=== PATIENT | male | born 1955 | race Caucasian/White ===

== ENCOUNTER → 2017-04-11 | Outpatient (CLI) | payer MEDICARE ==
[2017-04-11 08:07] LABS: Basophils % (A) 1 %; CH 31.7; CHCM 33.5; Eosinophils # (A) 0.3 k/uL (0-0.7); Eosinophils % (A) 3 %; HCT 45.8 % (39.0-53.0); Luc # (Auto) 0.32; Luc % (Auto) 4; Lymphocytes # (A) 1.9 k/uL (1.0-4.8); Lymphocytes % (A) 25 %; MCH 31.3 pg (25.0-35.0); MCHC 32.8 g/dL (31.0-37.0); MCV 95.1 fL (80.0-100.0); Mean Platelet Volume 6.8; Monocytes # (A) 0.6 k/uL (0-1.0); Monocytes % (A) 7 %; Neutrophils # (A) 4.7 k/uL (1.3-7.7); Neutrophils % (A) 60 %; RBC 4.81 m/uL (4.30-5.90); WBC 7.8 k/uL (3.8-10.6); WBC (Perox) 7.48
[2017-04-11 08:33] LABS: ALT 29 U/L (21-72); AST 23 U/L (17-59); Alkaline Phosphatase 89 U/L (38-126); Anion Gap 9 mmol/L; Blood Urea Nitrogen 17 mg/dL (9-20); Calcium 9.9 mg/dL (8.4-10.2); Carbon Dioxide 25 mmol/L (22-30); Chloride 108 mmol/L (98-107); Cholesterol 149 mg/dL (<200); Glucose 125 mg/dL (74-99); HDL Cholesterol 36 mg/dL (40-60); Non-African American GFR(MDRD) >60 (>60 ml/min/1.73 sqM); Potassium 4.9 mmol/L (3.5-5.1); Sodium 142 mmol/L (137-145); Total Bilirubin 0.6 mg/dL (0.2-1.3); Triglycerides 169 mg/dL (<150)
== END | disposition home or self-care (01) ==
LOC: LABWHC1 07:22
PROVIDERS: ATTEND Family Medicine
DX: D72.829 Elevated white blood cell count, unspecified (principal)
CPT/HCPCS: 36415; 80053; 80061; 84443; 85025

== ENCOUNTER → 2017-04-11 | Outpatient (CLI) | payer MEDICARE ==
--- NOTE | 2017-04-12 16:01 | MR ---
EXAMINATION TYPE: MR lumbar spine wo con DATE OF EXAM: 04/11/2017 7:13 AM COMPARISON: NONE HISTORY: 61-year-old male with low back pain, radiculopathy lsp TECHNIQUE: Multiplanar, multisequence images of the lumbar spine were acquired. FINDINGS: Variable desiccation of intervertebral discs throughout the lumbar spine. There is moderate disc heig ht loss from L3 through S1 levels with diffuse bulging discs. Disc vacuum at both L4-L5 and L5-S1. Advanced hypertrophic facet arthropathy in the lower lumbar spine. There is grade 1 anterolisthesis at L5-S1 suspected to be on the basis of bilateral L5 pars defects. Vertebral body heights are preserved. No suspicious bone marrow replacement. Conus medullaris is normal. At T11-T12, mild disc bulge impressing on the ventral thecal sac but not causing significant spinal c anal or foraminal stenosis. From T12 through L2 levels, no spinal canal or neuroforaminal stenosis. At L2-L3, there is minimal disc bulge without significant spinal canal or foraminal stenosis. At L3-L4, there is a large broad-based posterior disc protrusion. Disc material appears to abut both traversing L4 nerve roots. There is mild narrowing of the spinal canal with mild bilateral neuroforam inal stenosis. At L4-L5, there is bulging disc but with a right paracentral large disc extrusion with extruded disc measuring approximately 1.1 cm wide and 1.3 cm AP. This is mass effect onto the traversing right L5 n erve root. Along with facet arthropathy, there is moderate right neuroforaminal stenosis. At L5-S1, there is grade 1 anterolisthesis. Bulging disc and possible moderate to severe bilateral ne uroforaminal stenoses here. Hypertrophic facet arthropathy is present. No spinal canal stenosis. No prevertebral or paravertebral soft tissues abnormality. There is ectasia of the upper abdominal aorta measured at 2.7 cm. IMPRESSION: 1. Moderate to advanced degenerative disc disease lower lumbar spine. A large 1.3 cm right paracentra l extruded disc at L4-L5 impinges the traversing right L5 nerve root. Along with facet arthropathy, t here is moderate right neuroforaminal stenosis at this level. 2. Prominent posterior disc bulge at L2-L4 abuts both traversing L4 nerve roots and contributes to mi ld neural foraminal narrowing on both sides. 3. Grade 1 anterolisthesis at L5-S1 suspected to be on the basis of bilateral L5 pars defects. Unable to exclude moderate to severe neuroforaminal stenoses at this level.
== END | disposition home or self-care (01) ==
LOC: RADMRIMAIN 06:37
PROVIDERS: ATTEND Physical Medicine & Rehabilitation
DX: M99.73 Connective tissue and disc stenosis of intervertebral foramina of lumbar region (principal); M51.16 Intervertebral disc disorders with radiculopathy, lumbar region; M43.17 Spondylolisthesis, lumbosacral region; M46.96 Unspecified inflammatory spondylopathy, lumbar region; M47.22 Other spondylosis with radiculopathy, cervical region
CPT/HCPCS: 36415; 72148; 80053; 80061; 84443; 85025

== ENCOUNTER → 2018-04-28 | Outpatient (CLI) | payer MEDICARE ==
--- NOTE | 2018-04-28 15:16 | MR ---
EXAMINATION TYPE: MR lumbar spine wo con DATE OF EXAM: 04/28/2018 9:24 AM COMPARISON: 04/11/2017 HISTORY: Pain Multiplanar, MultiSpin echo imaging of the lumbar spine was performed. L1-L2: Mild disc desiccation mild posterior disc bulge. No herniation protrusion or central stenosis. Foramina are patent bilaterally. L2-L3: Mild disc desiccation mild posterior disc bulge. No herniation protrusion or central stenosis. Foramina are patent bilaterally. L3-L4: Moderate disc desiccation. Left paracentral disc herniation unchanged from prior study. Mild e ffacement ventral thecal sac. Mild left lateral recess stenosis. Bilateral foraminal encroachment lef t greater than right. L4-L5: Severe disc desiccation. New Disc herniation with the sequestered component identified posteri or to the L4 vertebral segment measuring 1.4 cm in craniocaudal dimension. Additional stable componen t identified paracentrally and to the right measuring 1 cm in greatest dimension. There is resultant left lateral recess stenosis and left foraminal encroachment. L5-S1: Severe disc desiccation. Grade 1 anterolisthesis of L5 on S1 measuring 6.8 mm. Posterior disc bulge with effacement of the ventral thecal sac. No evidence for lateral recess stenosis or central s tenosis. Foramina are narrowed bilaterally. Severe facet joint arthropathy. Bilateral spondylolysis. Lumbar segments are intact. No paraspinal masses are identified. Conus medullaris has a normal appe arance. IMPRESSION: 1. Multilevel degenerative disc disease. 2. New Disc herniation with the sequestered component identified posterior to the L4 vertebral segmen t measuring 1.4 cm in craniocaudal dimension. Additional stable component identified paracentrally an d to the right measuring 1 cm in greatest dimension
== END | disposition home or self-care (01) ==
LOC: RADMRIMAIN 08:41
PROVIDERS: ATTEND Physical Medicine & Rehabilitation
DX: M51.26 Other intervertebral disc displacement, lumbar region (principal); M51.36 Other intervertebral disc degeneration, lumbar region
CPT/HCPCS: 72148

== ENCOUNTER → 2018-06-25 | Outpatient (CLI) | payer MEDICARE ==
--- NOTE | 2018-06-25 15:03 | US ---
EXAMINATION TYPE: US venous doppler duplex LE RT DATE OF EXAM: 06/25/2018 2:50 PM COMPARISON: NONE CLINICAL HISTORY: I80.9 Phlebitis and thrombophlebitis. SIDE PERFORMED: Right TECHNIQUE: The lower extremity deep venous system is examined utilizing real time linear array sonog caio with graded compression, doppler sonography and color-flow sonography. VESSELS IMAGED: External Iliac Vein (EIV) Common Femoral Vein Deep Femoral Vein Greater Saphenous Vein * Femoral Vein Popliteal Vein Small Saphenous Vein * Proximal Calf Veins (* superficial vessels) Right Leg: Negative for DVT Unable to visualized posterior tibs (ordered) due to edema. Grayscale, color doppler, spectral doppler imaging performed of the deep veins of the right lower ext remity. There is normal flow, compressibility, vascular waveforms. Greater saphenous vein show sati sfactory compressibility. Results phoned to Dr. Avina immediately following exam. IMPRESSION: Suboptimal evaluation below knee. No evidence of acute DVT in right lower extremity on i mages saved.
== END | disposition home or self-care (01) ==
LOC: RADUSMAIN 14:25
PROVIDERS: ATTEND Physical Medicine & Rehabilitation
DX: M79.661 Pain in right lower leg (principal); M47.27 Other spondylosis with radiculopathy, lumbosacral region; M43.16 Spondylolisthesis, lumbar region; M51.17 Intervertebral disc disorders with radiculopathy, lumbosacral region; M48.062 Spinal stenosis, lumbar region with neurogenic claudication; M47.22 Other spondylosis with radiculopathy, cervical region; I80.9 Phlebitis and thrombophlebitis of unspecified site; K57.92 Diverticulitis of intestine, part unspecified, without perforation or abscess without bleeding; N28.9 Disorder of kidney and ureter, unspecified; Z95.828 Presence of other vascular implants and grafts

== ENCOUNTER → 2018-07-04 | Outpatient (CLI) | payer MEDICARE ==
--- NOTE | 2018-07-04 13:55 | MR ---
EXAMINATION TYPE: MR knee RT wo con DATE OF EXAM: 07/04/2018 COMPARISON: None HISTORY: Pain in right knee / Effusion, right knee TECHNIQUE: Multiplanar, multisequence imaging of the right knee is performed without IV contrast. FINDINGS: MEDIAL MENISCUS: There is diffuse increased signal within the posterior horn medial meniscus. No comm unication with the articular surface is evident. LATERAL MENISCUS: There is some increased signal within the anterior horn lateral meniscus compatible some internal derangement. No communication with an articular surface is evident. CRUCIATE LIGAMENTS: Anterior and posterior cruciate ligaments are intact. COLLATERAL LIGAMENTS: There is some mild increased signal adjacent to the medial collateral ligament. Mild strain could be considered. Lateral collateral ligament appears intact. EXTENSOR MECHANISM: Visualized quadriceps and patellar tendons are intact. EFFUSION: Small joint effusion is present. POPLITEAL CYST: No popliteal/goldman cyst. TRICOMPARTMENT SPACES: Preserved. CARTILAGE: Some mild narrowing of the tibial plateau articular cartilage may be present medially and laterally. BONE MARROW SIGNAL: No focal abnormal marrow signal is appreciated. OTHER: No additional significant abnormality is appreciated. IMPRESSION: 1. Internal derangement posterior horn medial meniscus and anterior horn lateral meniscus. No communi cation with the articular surfaces is evident. 2. Small joint effusion. 3. Mild strain medial collateral ligament
== END | disposition home or self-care (01) ==
LOC: RADMRIMAIN 07:35
PROVIDERS: ATTEND Orthopaedic Surgery Sports Medicine
DX: M23.321 Other meniscus derangements, posterior horn of medial meniscus, right knee (principal); M23.341 Other meniscus derangements, anterior horn of lateral meniscus, right knee

== ENCOUNTER 2018-08-15 08:01 | Day surgery (SDC) | payer MEDICARE ==
[2018-08-07 13:25] VITALS: BMI 26.1
[~2018-08-15 08:01] MED LIST: BACITRACIN 50,000 UNIT, POLYMYXIN B 500,000 UNIT in SODIUM CHLORIDE 0.9% IRRIGATIO 1,00... IRRIGATION ONE; DEXAMETHASONE SOD PHOSPHATE 10 MG/ML 1 ML VIAL IV ONE; LACTATED RINGERS 1,000 ML IV SCH; LIDOCAINE 1% 20 ML VIAL (10MG/ML) FOR IV START INTRADERMA PRN; MIDAZOLAM 2 MG/2 ML VIAL IV PRN; ONDANSETRON 4 MG/2 ML VIAL IVP ONE; SCOPOLAMINE 1.5MG/72HR PATCH TRANSDERM ONE; ceFAZolin IN SWFI 2 GM/20 ML SYRINGE IVP ONE; cefTRIAXone 1,000 MG VIAL (IM USE) IM ONE
[2018-08-15 09:38] LABS: Glucose,Whole Blood 143 mg/dL (75-99)
[2018-08-15] MEDS ORDERED: THROMBIN (BOVINE) 5,000 UNIT VIAL TOPICAL ONE (10:14)
[2018-08-15] MEDS ORDERED: GELATIN SPONGE,ABSORB (LARGE) 1 EACH SPONGE TOPICAL ONE (10:14)
[2018-08-15] MEDS ORDERED: PROPOFOL 10 MG/ML 20 ML VIAL IV ONE (10:14)
[2018-08-15] MEDS ORDERED: MIDAZOLAM 2 MG/2 ML VIAL ONE (10:14)
[2018-08-15] MEDS ORDERED: SUCCINYLCHOLINE CHLORIDE VIAL 200 MG/10 ML VIAL IV ONE (10:14)
[2018-08-15] MEDS ORDERED: LIDOCAINE 0.5%-EPI 1:200,000 50 ML VIAL SQ ONE ×2 (10:14)
[2018-08-15] MEDS ORDERED: fentaNYL (PF) 50 MCG/ML 2 ML AMP ONE (10:14)
[2018-08-15] MEDS ORDERED: LIDOCAINE 1% INJ 10MG/ML (20 ML MDV) ONE (10:14)
[2018-08-15] MEDS ORDERED: methylPREDNISolone ACETATE 40 MG/ML 1 ML VIAL MISCELLANE ONE (10:14)
[2018-08-15] MEDS ORDERED: HYDROcodone/APAP 5-325MG 1 EACH TAB PO PRN ×3 (11:51→11:55)
[2018-08-15] MEDS ORDERED: BENZOCAINE/MENTHOL LOZENG 1 EACH LOZENGE MUCOUS MEM PRN (11:51)
[2018-08-15] MEDS ORDERED: HYDROmorphone 1 MG/ML 1 ML SYRINGE IVP PRN (11:51)
[2018-08-15] MEDS ORDERED: ONDANSETRON 4 MG/2 ML VIAL IVP PRN (11:51)
[2018-08-15] MEDS ORDERED: IBUPROFEN 600 MG TAB PO PRN (11:51)
[2018-08-15] MEDS ORDERED: KETOROLAC 30 MG/ML 1 ML VIAL IVP PRN (11:51)
[2018-08-15] MEDS ORDERED: NITROGLYCERIN SL TABS 0.4 MG TAB SUBLINGUAL PRN (11:55)
[2018-08-15 12:00] VITALS: TEMP 97.2
[2018-08-15] MEDS ORDERED: SODIUM CHLORIDE 0.9% 1,000 ML IV SCH (12:00)
[2018-08-15] MEDS ORDERED: LACTATED RINGERS 1,000 ML IV ONE (12:00)
--- NOTE | 2018-08-15 12:01 | P.OP ---
Date of Procedure: 08/15/18 Preoperative Diagnosis: Herniated nucleus pulposis L4 5 bilateral lower extremity radiculopathy worse on the right and left Right lower extremity weakness Postoperative Diagnosis: Same Anesthesia: GETA Pathology: none sent Condition: stable Disposition: PACU Description of Procedure: BRIEF OPERATIVE NOTE Preoperative Diagnosis: Herniated nucleus pulposis L4 5, bilateral lower extremity radiculopathy right greater than left, right lower extremity weakness Postoperative Diagnosis: Same with degenerative disc disease Procedure: Laminectomy and decompression L4 5 Discectomy for decompression L4 5 Use of fluoroscopic guidance Surgeon: Dr. Du Manufacturing Project Engineer: Rai Mendoza is present throughout the entire the case persistence during positioning, dissection, exposure, visualization, and all crucial elements of the case as well as closure. Anesthesia: General anesthesia Estimated blood loss: Approximately 50 mL none Complications: None apparent Components implanted: None Disposition: To recovery room in good stable condition. OPERATIVE INDICATIONS The patient has been having issues in their lower back and lower extremities. he has had long-standing issues of the past year with his back and his lower extremities. He was found have a large disc herniation at L4 5 which correlate with his lower extremity radiculopathy bilaterally articular to the right. He had significant disc degeneration L4 5 and L5-S1 as well. He been through extensive conservative measures and conservative treatment without any lasting benefit. The patient has been through conservative treatment. We discussed the possibility of decompression alone versus possibly surgical intervention with decompression and fusion. The patient did have issues with his urine but did not have any obvious signs of infection. I discussed the urine issues with his primary care physician and we felt that it was okay for him to proceed with prophylactic antibiotics and close follow-up was operatively with urology. We discussed various treatment options including surgery, and the patient wishes to proceed with surgery We discussed the risk, patient's alternatives and benefits of surgery including but not limited to, risk of bleeding risk of infection, risk of need for further surgery, risk of decreased, loss of motion, loss of function, nerve damage, paralysis, heart attack, blindness and . OPERATIVE SUMMARY After discussing all the risks, patient alternatives and benefits at length, the patient elected to proceed with surgical intervention, signed informed consent, and presented for their procedure. The patient was seen and examined in the preoperative holding area and the surgical site was marked. The patient was given antibiotics and brought to the operating room. The patient was sedated and intubated by anesthesia in standard fashion. The patient was positioned on to the operating room table in a prone position on the appropriate frame which was well-padded and well molded. We were careful to pad any bony prominences and pressure points. We were careful to maintain the patient's cervical spine and good neutral alignment and position throughout. The patient was prepped and draped in a normal standard fashion. An appropriate timeout and keystone protocol performed. We were able to proceed with the surgery. Fluoroscopy was utilized to establish the appropriate level at L4 5. The local wound area was infiltrated with local anesthetic. An incision was made at the midline longitudinally over the appropriate levels at L4 5. Dissection was taken down subcutaneously to the level of the fascia which was split midline. Dissection was taken over the lamina. Intraoperative fluoroscopy was taken which showed a marker at the appropriate level At L4 5. With the appropriate level positively confirmed, we were able to proceed with laminectomy. The wound was copiously irrigated and suctioned dry as had been done periodically throughout the case. I performed a laminectomy with a combination of curettes and a high-speed bur and Kerrison rongeurs. A small medial facetectomy was performed again further access. A partial foraminotomy was also performed. Portions of the ligamentum flavum were taken down to expose the dura and traversing nerve root. I was able to mobilize the traversing nerve root and gain access to the disc space. Note was made of obvious compression from the disc. There was significant adhesion of the disc to the nerve root and a great deal scar tissue around the nerve root as well. I had to tease away the scar tissue to establish the lateral aspect of the nerve for more fully mobilize the disc itself. The disc was quite matted down and scarred in but is able to start removing the disc in large segments and piecemeal. Protecting the soft tissue structures, a small annulotomy was established. I was able to perform discectomy and remove any extruded disc fragments and any loose fragments from within the disc itself. There is some significant disc desiccation noted. I tried to preserve the disc annulus that appeared stable. There were no further extruded fragments noted. There is no evidence of dural tear or leak. Good hemostasis maintained. The wound was copiously irrigated and suctioned dry. Good decompression and discectomy was noted. We were able to proceed with closure. The fascia was closed for a watertight closure. The subcuticular tissue was closed with absorbable suture. The wound was cleaned and dried and dressed with the appropriate dressing. The drapes were broken down. The patient was gently rolled back onto their hospital bed being careful to maintain their cervical spine and good neutral alignment and position. They were woken up by anesthesia, extubated, and brought to the recovery room in good stable condition. The patient will be admitted to the hospital for observation and for appropriate postoperative care, medical management and monitoring. We will continue to follow them closely about the postoperative course.
--- NOTE | 2018-08-15 12:05 | XR ---
Fluoroscopy INDICATION: Pain FINDINGS: Fluoroscopy time: 2 seconds. Images obtained: 1. IMPRESSIONS: 1. Documentation of fluoroscopy.
[2018-08-15] MEDS: HYDROmorphone 0.5 MG/0.5 ML SYRINGE IVP PRN ×2 (12:08→12:20)
[2018-08-15] MEDS ORDERED: MEPERIDINE 50 MG/ML SYRINGE IVP ONE (12:53)
[2018-08-15 13:47] VITALS: RESP 18
[2018-08-15 14:22] VITALS: BP 124/77; PULSE 56
[2018-08-15] MEDS ORDERED: ceFAZolin IN SWFI 2 GM/20 ML SYRINGE IVP SCH (16:00)
--- NOTE | 2018-08-15 16:27 | FL ---
EXAMINATION TYPE: FL guidance operating room, XR lumbar spine 2 or 3V DATE OF EXAM: 08/15/2018 CLINICAL HISTORY: Low back pain. TECHNIQUE: Fluoroscopy. Intraoperative limited views lumbar spine. COMPARISON: None. FINDINGS: Fluoroscopic guidance was provided during lumbar fusion procedure performed by Dr. Du. A total of 1 minute 55 seconds of fluoroscopic time was utilized during the procedure and 6 spot tulio ges are acquired. Images acquired show placement of posterior interpedicular rods and screws and metallic disc material L3-L5 levels with satisfactory alignment seen on intraoperative images saved. IMPRESSION: As Above.
[2018-08-15] MEDS ORDERED: ATORVASTATIN 40 MG TAB PO SCH (21:00)
[2018-08-15] MEDS ORDERED: ATENOLOL 50 MG TAB PO SCH (21:00)
[2018-08-16] MEDS ORDERED: ASPIRIN 81 MG PO SCH (09:00)
== END 2018-08-15 14:38 | disposition home or self-care (01) ==
LOC: OR 08:01
PROVIDERS: ATTEND Orthopaedic Surgery Orthopaedic Surgery of the Spine
DX: M51.16 Intervertebral disc disorders with radiculopathy, lumbar region (principal); I25.10 Atherosclerotic heart disease of native coronary artery without angina pectoris; I13.10 Hypertensive heart and chronic kidney disease without heart failure, with stage 1 through stage 4 chronic kidney disease, or unspecified chronic kidney disease; N18.9 Chronic kidney disease, unspecified; F17.210 Nicotine dependence, cigarettes, uncomplicated; Z95.5 Presence of coronary angioplasty implant and graft; E78.5 Hyperlipidemia, unspecified; E78.00 Pure hypercholesterolemia, unspecified; Z79.82 Long term (current) use of aspirin; Z79.899 Other long term (current) drug therapy
CPT/HCPCS: 84132; 72100; 72020; 63030; J1030; J2175; J2405; J0696; J1170; 86850; 86900; 86901

== ENCOUNTER 2022-06-03 12:33 | Emergency (ER) | payer MEDICARE ==
[2022-06-03 12:40] VITALS: BP 122/75; PULSE 52; RESP 16; TEMP 98.4
--- NOTE | 2022-06-03 13:07 | ED ---
General Adult HPI - General Chief complaint: Abdominal Pain Stated complaint: Constipation Time Seen by Provider: 06/03/22 12:40 Source: patient, RN notes reviewed, old records reviewed Mode of arrival: ambulatory Limitations: no limitations - History of Present Illness Initial comments: This is a 66-year-old male who presents emergency Department stating he has been unable to have a good bowel movement for the last 9 days. Patient states his decreased his by mouth intake and eating because he is unable to have a bowel movement. Patient states she's tried a laxative and has not helped. Patient states he has diffuse lower abdominal tenderness bilaterally in states there is no one area that hurts more than the other. Patient states anytime he tries to have a bowel movement his lower abdomen starts to hurt. Patient denies any nausea vomiting. Patient denies any fever chills. Patient states he doesn't have a long-standing history of this. - Related Data Home Medications Medication Instructions Recorded Confirmed Aspirin [Children's Aspirin] 81 mg PO DAILY 08/07/18 08/15/18 Atorvastatin [Lipitor] 40 mg PO HS 08/07/18 08/15/18 HYDROcodone/APAP 5-325MG [[place] 1 tab PO Q6HR PRN 08/07/18 08/15/18 5-325] Nitrofurantoin Monohyd/M-Cryst 100 mg PO Q12HR 08/07/18 08/15/18 [Macrobid] Nitroglycerin Sl Tabs [Nitrostat] 0.4 mg SUBLINGUAL Q5M PRN 08/07/18 08/15/18 atenoloL [Tenormin] 50 mg PO HS 08/07/18 08/15/18 Previous Rx's Medication Instructions Recorded HYDROcodone/APAP 5-325MG [[place] 1 - 2 tab PO Q6HR PRN #24 tab 08/15/18 5-325] Allergies Allergy/AdvReac Type Severity Reaction Status Date / Time No Known Allergies Allergy Verified 06/03/22 12:35 Review of Systems ROS Statement: Those systems with pertinent positive or pertinent negative responses have been documented in the HPI. ROS Other: All systems not noted in ROS Statement are negative. Past Medical History Past Medical History: Coronary Artery Disease (CAD), Hyperlipidemia, Hypertension History of Any Multi-Drug Resistant Organisms: None Reported Past Surgical History: Heart Catheterization With Stent Past Psychological History: No Psychological Hx Reported Smoking Status: Current every day smoker Past Alcohol Use History: None Reported Past Drug Use History: Marijuana General Exam - General Exam Comments Initial Comments: GENERAL: Patient is well-developed and well-nourished. Patient is nontoxic and well- hydrated and is in mild distress. ENT: Neck is soft and supple. Neck has full range of motion without eliciting any pain. EYES: The sclera were anicteric and conjunctiva were pink and moist. Extraocular movements were intact and pupils were equal round and reactive to light. Eyelids were unremarkable. PULMONARY: Unlabored respirations. Good breath sounds bilaterally. No audible rales rhonchi or wheezing was noted. CARDIOVASCULAR: There is a regular rate and rhythm ABDOMEN: Mild lower quadrant abdominal pain bilaterally no rebound. SKIN: Skin is clear with no lesions or rashes and otherwise unremarkable. NEUROLOGIC: Patient is alert and oriented x3. Cranial nerves II through XII are grossly intact. Motor and sensory are also intact. Normal speech, volume and content. Symmetrical smile. MUSCULOSKELETAL: Normal extremities with adequate strength and full range of motion. LYMPHATICS: No significant lymphadenopathy is noted PSYCHIATRIC: Normal psychiatric evaluation. Limitations: no limitations Course Vital Signs 06/03/22 12:35 Temperature 98.4 F Pulse Rate 52 L Respiratory 16 Rate Blood Pressure 122/75 O2 Sat by Pulse 98 Oximetry Medical Decision Making - Medical Decision Making KUB showed moderate constipation. Patient received an enema in the emergency department stating he felt better felt good enough to go home. Patient will follow-up with his primary medical care doctor if there are any other issues. Disposition Clinical Impression: Constipation Disposition: HOME SELF-CARE Condition: Good Instructions (If sedation given, give patient instructions): Constipation (ED), High Fiber Diet (ED) Is patient prescribed a controlled substance at d/c from ED?: No Referrals: Mary Jo Haque MD [Primary Care Provider] - 1-2 days Time of Disposition: 15:21
--- NOTE | 2022-06-03 13:11 | XR ---
EXAMINATION TYPE: XR KUB DATE OF EXAM: 06/03/2022 12:51 PM CLINICAL HISTORY: Constipation for 9 days. TECHNIQUE: Two Upright KUB images of the abdomen are obtained. COMPARISON: Abdominal x-ray 2012. FINDINGS: Scattered gas is seen in non-distended small bowel loops. Gas and fecal material is seen in non-distended colon. Mild to moderate colonic fecal prominence in the right and left colon. Further progression of staghorn type calculus in the right kidney centrally midpole level. This measures 3.7 x 2.6 cm in size. Lung bases are clear. No free air. IMPRESSION: Overall nonobstructive bowel gas pattern. Mild colonic fecal stasis.
== END 2022-06-03 15:32 | disposition home or self-care (01) ==
LOC: EC 12:33
DX: K59.00 Constipation, unspecified (principal); I10 Essential (primary) hypertension; E78.5 Hyperlipidemia, unspecified; I25.10 Atherosclerotic heart disease of native coronary artery without angina pectoris; F17.200 Nicotine dependence, unspecified, uncomplicated; F12.90 Cannabis use, unspecified, uncomplicated; Z79.82 Long term (current) use of aspirin; Z79.02 Long term (current) use of antithrombotics/antiplatelets; Z79.899 Other long term (current) drug therapy
CPT/HCPCS: 74018; 99284

== ENCOUNTER 2023-10-10 19:24 | Emergency (ER) | payer MEDICARE ==
[2023-10-10] MEDS ORDERED: SODIUM CHLORIDE 0.9% 1,000 ML IV STA (19:46)
--- NOTE | 2023-10-10 19:48 | ED ---
Abdominal Pain HPI - General Source: patient Mode of arrival: ambulatory Limitations: no limitations <Rai Brown - Last Filed: 10/11/23 00:44> <Veronica Seymour - Last Filed: 10/11/23 03:59> - General Chief Complaint: Abdominal Pain Stated Complaint: Abd Pain Time Seen by Provider: 10/10/23 19:34 - History of Present Illness Initial Comments: 68-year-old male with no prior abdominal surgeries presenting to the ED with a chief complaint of abdominal pain. Patient states 3 days ago after moving [employer] equipment down stairs started to experience pain of the right upper abdomen. Patient states pain is worse with movement. Notes possible increase in pain with eating as well. No nausea or vomiting. No changes in bowel or bladder habits. Reports since onset pain has been continuous prompting presentation to the ED for further evaluation. Denies chest pain or shortness of breath. No other complaints. (Rai Brown) - Related Data Home Medications Medication Instructions Recorded Confirmed Aspirin [Children's Aspirin] 81 mg PO DAILY 08/07/18 08/15/18 Atorvastatin [Lipitor] 40 mg PO HS 08/07/18 08/15/18 HYDROcodone/APAP 5-325MG [Urich 1 tab PO Q6HR PRN 08/07/18 08/15/18 5-325] Nitrofurantoin Monohyd/M-Cryst 100 mg PO Q12HR 08/07/18 08/15/18 [Macrobid] Nitroglycerin Sl Tabs [Nitrostat] 0.4 mg SUBLINGUAL Q5M PRN 08/07/18 08/15/18 atenoloL [Tenormin] 50 mg PO HS 08/07/18 08/15/18 Previous Rx's Medication Instructions Recorded HYDROcodone/APAP 5-325MG [Urich 1 - 2 tab PO Q6HR PRN #24 tab 08/15/18 5-325] Amoxic-Pot Clav 875-125Mg 1 tab PO Q12HR 1 Days #20 tab 10/11/23 [Augmentin 875-125] HYDROcodone/APAP 10-325MG [Urich 1 tab PO Q6HR PRN 3 Days #12 tab 10/11/23 10-325] Allergies Allergy/AdvReac Type Severity Reaction Status Date / Time No Known Allergies Allergy Verified 10/10/23 19:28 Review of Systems ROS Other: All systems not noted in ROS Statement are negative. <Rai Brown - Last Filed: 10/11/23 00:44> ROS Other: All systems not noted in ROS Statement are negative. <Veronica Seymour - Last Filed: 10/11/23 03:59> ROS Statement: Those systems with pertinent positive or pertinent negative responses have been documented in the HPI. Past Medical History Past Medical History: Coronary Artery Disease (CAD), Hyperlipidemia, Hypertension History of Any Multi-Drug Resistant Organisms: None Reported Past Surgical History: Heart Catheterization With Stent Past Psychological History: No Psychological Hx Reported Smoking Status: Current every day smoker Past Alcohol Use History: None Reported Past Drug Use History: Marijuana <Rai Brown - Last Filed: 10/11/23 00:44> General Exam Limitations: no limitations General appearance: alert, in no apparent distress Neck exam: Present: normal inspection Respiratory exam: Present: normal lung sounds bilaterally Cardiovascular Exam: Present: regular rate, normal rhythm GI/Abdominal exam: Present: soft (Tenderness to palpation of the right upper quadrant however negative Morrison's sign. No rebound guarding or rigidity. Right flank tenderness to percussion..), other Neurological exam: Present: alert, oriented X3 Skin exam: Present: warm, dry <Rai Brown - Last Filed: 10/11/23 00:44> Course Vital Signs 10/10/23 10/10/23 10/11/23 19:26 21:26 00:54 Temperature 99.3 F 97.7 F Pulse Rate 57 L 54 L 53 L Respiratory 16 18 18 Rate Blood Pressure 187/80 177/83 169/81 O2 Sat by Pulse 99 97 98 Oximetry Medical Decision Making - Lab Data Result diagrams: 10/10/23 19:49 10/10/23 19:49 <Rai Brown - Last Filed: 10/11/23 00:44> - Lab Data Result diagrams: 10/10/23 19:49 10/10/23 19:49 <Veronica Seymour - Last Filed: 10/11/23 03:59> - Medical Decision Making Was pt. sent in by a medical professional or institution (, PA, SOLE ROUNDING MACHINE OPERATOR, urgent care, hospital, or detention...) When possible be specific @ -No Did you speak to anyone other than the patient for history (EMS, parent, family, police, friend...)? What history was obtained from this source @ -No Did you review nursing and triage notes (agree or disagree)? Why? @ -I reviewed and agree with nursing and triage notes Were old charts reviewed (outside hosp., previous admission, EMS record, old EKG, old radiological studies, urgent care reports/EKG's, detention records)? Report findings @ -No old charts were reviewed Differential Diagnosis (chest pain, altered mental status, abdominal pain women, abdominal pain men, vaginal bleeding, weakness, fever, dyspnea, syncope, headache, dizziness, GI bleed, back pain, seizure, CVA, palpatations, mental health, musculoskeletal)? @ -Differential Abdominal Pain Men: Appendicitis, cholecystitis, diverticulosis, ischemic bowel, pancreatitis, hepatitis, UTI, gastroenteritis, AAA, incarcerated hernia, bowel obstruction, constipation, inflammatory bowel, hepatitis, peptic ulcer disease, splenic infarction, perforated viscus, testicular torsion, this is not meant to be an all-inclusive list EKG interpreted by me (3pts min.). @ -None X-rays interpreted by me (1pt min.). @ -None done CT interpreted by me (1pt min.). @ -CT interpreted by me showing stone right kidney. U/S interpreted by me (1pt. min.). @ -Ultrasound interpreted by me showing no evidence of cholecystitis or other acute findings. What testing was considered but not performed or refused? (CT, X-rays, U/S, labs)? Why? @ -None What meds were considered but not given or refused? Why? @ -None Did you discuss the management of the patient with other professionals (professionals i.e. , PA, SOLE ROUNDING MACHINE OPERATOR, lab, RT, psych nurse, mental health social worker, digital marketing manager, teacher, police officer, mattress spring encaser)? Give summary @ -No Was smoking cessation discussed for >3mins.? @ -No Was critical care preformed (if so, how long)? @ -No Were there social determinants of health that impacted care today? How? (Homelessness, low income, unemployed, alcoholism, drug addiction, transportation, low edu. Level, literacy, decrease access to med. care, custodial, rehab)? @ -No Was there de-escalation of care discussed even if they declined (Discuss DNR or withdrawal of care, Hospice)? DNR status @ -No What co-morbidities impacted this encounter? (DM, HTN, Smoking, COPD, CAD, Cancer, CVA, ARF, Chemo, Hep., AIDS, mental health diagnosis, sleep apnea, morbid obesity)? @ -None Was patient admitted / discharged? Hospital course, mention meds given and route, prescriptions, significant lab abnormalities, going to OR and other pertinent info. @ -Discharge 68-year-old male presents to the ED with 3 days of right upper quadrant/right flank pain. CBC unremarkable, chemistry panel unremarkable, amylase lipase unremarkable, urine is remarkable for large amount of blood and 41 red blood cells however only 2 white blood cells. This time, patient reports pain well controlled. Patient reports that he would like to go home due to him having an autistic son at home who is not currently being watched. Reports that he would not like to wait until the final interpretation of the CT is completed. Patient at this time discharged home in stable condition. We will call patient back with pertinent results and instruct him to return if needed. Otherwise, patient instructed to follow up with urology. Discussed return precautions with patient who verbalizes agreement. Undiagnosed new problem with uncertain prognosis? @ -No Drug Therapy requiring intensive monitoring for toxicity (Heparin, Nitro, Insulin, Cardizem)? @ -No Were any procedures done? @ -No Diagnosis/symptom? @ -Right flank pain Acute, or Chronic, or Acute on Chronic? @ -Acute Uncomplicated (without systemic symptoms) or Complicated (systemic symptoms)? @ -Uncomplicated Side effects of treatment? @ -No Exacerbation, Progression, or Severe Exacerbation? @ -No Poses a threat to life or bodily function? How? (Chest pain, [place], [place], pneumonia, PE, COPD, DKA, ARF, appy, cholecystitis, CVA, Diverticulitis, Homicidal, Suicidal, threat to staff... and all critical care pts) @ -No (Rai Brown) Patient signed out to me pending CT results. CT demonstrates wall thickening of the sigmoid colon concerning for colitis. Antibiotics called into the patient's pharmacy. There is also a right staghorn calculus which the patient is aware of. He is to follow-up with his doctor and return for any new or worsening symptoms (Veronica Seymour) - Lab Data Lab Results 10/10/23 10/10/23 10/10/23 Range/Units 19:49 19:49 19:49 WBC 10.4 (3.8-10.6) k/uL RBC 4.99 (4.30-5.90) m/uL Hgb 15.4 (13.0-17.5) gm/dL Hct 44.9 (39.0-53.0) % MCV 89.9 (80.0-100.0) fL MCH 30.8 (25.0-35.0) pg MCHC 34.3 (31.0-37.0) g/dL RDW 13.2 (11.5-15.5) % Plt Count 237 (150-450) k/uL MPV 8.2 Neutrophils % 68 % Lymphocytes % 22 % Monocytes % 7 % Eosinophils % 1 % Basophils % 0 % Neutrophils # 7.1 (1.3-7.7) k/uL Lymphocytes # 2.3 (1.0-4.8) k/uL Monocytes # 0.7 (0-1.0) k/uL Eosinophils # 0.1 (0-0.7) k/uL Basophils # 0.0 (0-0.2) k/uL Sodium 135 L (137-145) mmol/L Potassium 4.3 (3.5-5.1) mmol/L Chloride 100 (98-107) mmol/L Carbon Dioxide 24 (22-30) mmol/L Anion Gap 11 mmol/L BUN 16 (9-20) mg/dL Creatinine 1.04 (0.66-1.25) mg/dL Est GFR (CKD-EPI)AfAm 86 (>60 ml/min/1.73 sqM) Est GFR (CKD-EPI)NonAf 74 (>60 ml/min/1.73 sqM) Glucose 209 H (74-99) mg/dL Calcium 9.2 (8.4-10.2) mg/dL Total Bilirubin 0.9 (0.2-1.3) mg/dL AST 21 (17-59) U/L ALT 14 (4-49) U/L Alkaline Phosphatase 94 (38-126) U/L Total Protein 6.4 (6.3-8.2) g/dL Albumin 4.0 (3.5-5.0) g/dL Amylase 56 (30-110) U/L Lipase 124 (23-300) U/L Urine Color Light Yellow Urine Appearance Clear (Clear) Urine pH 5.5 (5.0-8.0) Ur Specific [place] 1.008 (1.001-1.035) Urine Protein Negative (Negative) Urine Glucose (UA) Negative (Negative) Urine Ketones Negative (Negative) Urine Blood Large H (Negative) Urine Nitrite Negative (Negative) Urine Bilirubin Negative (Negative) Urine Urobilinogen <2.0 (<2.0) mg/dL Ur Leukocyte Esterase Negative (Negative) Urine RBC 41 H (0-5) /hpf Urine WBC 2 (0-5) /hpf Ur Squamous Epith Cells <1 (0-4) /hpf Urine Bacteria Rare H (None) /hpf Urine Mucus Rare H (None) /hpf Disposition Is patient prescribed a controlled substance at d/c from ED?: No Time of Disposition: 00:45 <Rai Brown - Last Filed: 10/11/23 00:44> <Veronica Seymour - Last Filed: 10/11/23 03:59> Clinical Impression: Flank pain Disposition: HOME SELF-CARE Condition: Good Additional Instructions: Please return to the Emergency Department if symptoms worsen or any other concerns. Please follow up with urology. Prescriptions: Amoxic-Pot Clav 875-125Mg [Augmentin 875-125] 1 tab PO Q12HR 1 Days #20 tab HYDROcodone/APAP 10-325MG [Urich 10-325] 1 tab PO Q6HR PRN 3 Days #12 tab PRN Reason: Pain Referrals: Mary Jo Haque MD [Primary Care Provider] - 1-2 days Giovani Davidson MD [STAFF PHYSICIAN] - 1-2 days
[2023-10-10 20:07] LABS: Basophils % (A) 0 %; Eosinophils # (A) 0.1 k/uL (0-0.7); Eosinophils % (A) 1 %; HCT 44.9 % (39.0-53.0); HGB 15.4 gm/dL (13.0-17.5); Lymphocytes # (A) 2.3 k/uL (1.0-4.8); Lymphocytes % (A) 22 %; MCH 30.8 pg (25.0-35.0); MCHC 34.3 g/dL (31.0-37.0); MCV 89.9 fL (80.0-100.0); Mean Platelet Volume 8.2; Monocytes # (A) 0.7 k/uL (0-1.0); Monocytes % (A) 7 %; Neutrophils # (A) 7.1 k/uL (1.3-7.7); Neutrophils % (A) 68 %; Platelet Count 237 k/uL (150-450); RBC 4.99 m/uL (4.30-5.90); RDW 13.2 % (11.5-15.5); WBC 10.4 k/uL (3.8-10.6)
[2023-10-10 20:24] LABS: ALT 14 U/L (4-49); AST 21 U/L (17-59); African American GFR (CKD) 86 (>60 ml/min/1.73 sqM); Alkaline Phosphatase 94 U/L (38-126); Amylase 56 U/L (30-110); Anion Gap 11 mmol/L; Blood Urea Nitrogen 16 mg/dL (9-20); Calcium 9.2 mg/dL (8.4-10.2); Carbon Dioxide 24 mmol/L (22-30); Chloride 100 mmol/L (98-107); Glucose 209 mg/dL (74-99); Lipase 124 U/L (23-300); Non-African American GFR(CKD) 74 (>60 ml/min/1.73 sqM); Potassium 4.3 mmol/L (3.5-5.1); Sodium 135 mmol/L (137-145); Total Bilirubin 0.9 mg/dL (0.2-1.3); Total Protein 6.4 g/dL (6.3-8.2)
[2023-10-10 20:59] LABS: Appearance,Urine Clear (Clear); Bacteria,Urine Rare /hpf; Bilirubin,Urine Negative (Negative); Blood,Urine Large (Negative); Color,Urine Light Yellow; Glucose,Urine (UA) Negative (Negative); Ketones,Urine Negative (Negative); Leukocyte Esterase,Urine Negative (Negative); Mucus,Urine Rare /hpf; Nitrite,Urine Negative (Negative); PH, Urine 5.5 (5.0-8.0); Protein,Urine Negative (Negative); RBC,Urine 41 /hpf (0-5); Specific Gravity,Urine 1.008 (1.001-1.035); Squamous Epithelial Cell,Urine <1 /hpf (0-4); Urobilinogen,Urine <2.0 mg/dL (<2.0); WBC,Urine 2 /hpf (0-5)
[2023-10-10 21:29] VITALS: RESP 18
[2023-10-10] MEDS ORDERED: KETOROLAC 15 MG/ML 1 ML VIAL IVP STA (21:43)
--- NOTE | 2023-10-10 22:20 | US ---
EXAMINATION TYPE: US gallbladder DATE OF EXAM: 10/10/2023 COMPARISON: CT abdomen pelvis without contrast 08/08/2013 CLINICAL INDICATION: Male, 68 years old with history of r/o cholecystitis; RUQ and RLQ pain that radi ates to back x 3 days. TECHNIQUE: Multiple sonographic images of the right upper quadrant are obtained. FINDINGS: EXAM MEASUREMENTS: Liver Length: 14.7 cm Gallbladder Wall: 0.21 cm CBD: Not visualized Right Kidney: 10.9 x 4.2 x 5.2 cm MOBILITY ARCHITECT NOTES: Pancreas: Obscured by bowel gas Liver: Heterogeneous. Cystic area with septations seen in left lobe measuring 3.0 x 3.8 x 2.8cm; thi s appears similar to the prior CT in 2012 Gallbladder: appears wnl. Imaged intercostally due to body habitus and bowel gas Evidence for sonographic Morrison's sign: No CBD: Not well visualized Right Kidney: Multiple hyperechoic foci seen in the inf pole with posterior shadowing, largest measu ring 1.0 x 1.1 x 0.6cm IMPRESSION: 1. Limited study shows no evidence of cholelithiasis or cholecystitis. 2. Mildly echogenic liver can be seen with diffuse hepatocellular process, commonly steatosis. 3. Nonvisualization of the pancreas due to bowel gas. 4. Right renal calculi without hydronephrosis. 5. Stable left hepatic lobe lesion since 2012, consistent with a cyst.
[2023-10-11 01:17] VITALS: BP 169/81; PULSE 53; TEMP 97.7
--- NOTE | 2023-10-11 01:23 | CT ---
EXAM: CT Abdomen and Pelvis Without Intravenous Contrast CLINICAL HISTORY: ITS.REASON CT Reason: R flank pain. hx stones TECHNIQUE: Axial computed tomography images of the abdomen and pelvis without intravenous contrast. CTDI is 10.6 mGy and DLP is 583 mGy-cm. This CT exam was performed using one or more of the following dose reduction techniques: automated exposure control, adjustment of the mA and/or kV according to patient size, and/or use of iterative reconstruction technique. COMPARISON: No relevant prior studies available. FINDINGS: Lung bases: Unremarkable. No mass. No consolidation. ABDOMEN: Liver: Cystic lesion in the RIGHT hepatic lobe measures 2.7 x 2.6 cm. Hepatic steatosis. Gallbladder and bile ducts: Unremarkable. No calcified stones. No ductal dilation. Pancreas: Unremarkable. No ductal dilation. Spleen: Unremarkable. No splenomegaly. Adrenals: Unremarkable. No mass. Kidneys and ureters: RIGHT stag horn calculus. No obstructive uropathy in the ureters. No hydronephrosis. Stomach and bowel: Circumferential wall thickening of the sigmoid colon, concerning for colitis. Given the patient's age, surgical evaluation recommended to exclude any underlying colon pathology. Diverticulosis, without acute diverticulitis. No small bowel obstruction. No free intraperitoneal air. PELVIS: Appendix: No findings to suggest acute appendicitis. Bladder: Unremarkable. No stones. Reproductive: Unremarkable as visualized. ABDOMEN and PELVIS: Intraperitoneal space: Unremarkable. No free air. No significant fluid collection. Bones/joints: Degenerative changes of the spine. No acute fracture. No dislocation. Soft tissues: Unremarkable. Vasculature: Atherosclerotic changes of the aorta. No abdominal aortic aneurysm. Lymph nodes: Unremarkable. No enlarged lymph nodes. IMPRESSION: 1. Circumferential wall thickening of the sigmoid colon, concerning for colitis. Given the patient's age, surgical evaluation recommended to exclude any underlying colon pathology. 2. RIGHT stag horn calculus. No obstructive uropathy in the ureters. No hydronephrosis.
== END 2023-10-11 01:01 | disposition home or self-care (01) ==
LOC: EC 19:24
DX: R10.11 Right upper quadrant pain (principal); E78.5 Hyperlipidemia, unspecified; I10 Essential (primary) hypertension; F17.200 Nicotine dependence, unspecified, uncomplicated; F12.90 Cannabis use, unspecified, uncomplicated
CPT/HCPCS: 36415; 80053; 82150; 83690; 85025; 81001; 76705; 74176; 99284; 96374; 96361; J1885